=== PATIENT | male | born 1940 | race African-American/Black ===

== ENCOUNTER 2020-02-23 11:25 | Outpatient (CLI) | payer MEDICARE ==
[2020-02-23 13:58] LABS: HB2 TOTAL 11.6 g/dL; HEMOGLOBIN A1C 0.48 g/dL; HEMOGLOBIN A1C % 5.9 % (4.6-6.2)
[2020-02-23 14:09] LABS: CALCIUM 8.7 mg/dL (8.5-10.3); CREATININE 1.5 mg/dL (0.6-1.2)
[2020-02-23 15:34] LABS: CREATININE,URINE 228.6 mg/dL; MICROALBUM/CREATININE RATIO,UR 596.2 ug/mg (<30.0); MICROALBUMIN,URINE 136.3 mg/dL (0-300.0)
== END 2020-02-23 23:59 | disposition home or self-care (01) ==
LOC: LAB.WCP 11:25
PROVIDERS: ATTEND Family Medicine
DX: E11.9 Type 2 diabetes mellitus without complications (principal)
CPT/HCPCS: 36415; 80048; 82043; 82570; 83036